=== PATIENT | female | born 1975 | race Caucasian/White ===

== ENCOUNTER 2020-01-28 20:06 | Inpatient (IN) | payer MEDICAID ==
[~2020-01-28] VITALS: Ht 170.2 cm; Wt 106.1 kg
--- NOTE | 2020-01-28 23:15 | NUR ---
RN OPENING NOTES Received patient A/O x4, direct admit from [facility]. Admitted to [facility]-2, via [facility], accompanied by 2 deputy probation officer. Pt noted able to walk from [facility] to bed, steady gait noted. Admission routine done. Admission orders noted and carried out. Initial skin assessment done, pt refused to take of her clothing, pt claimed she has not skin problem noted. Kept on bed clean, dry and comfortable. Call light within easy reach. Will continue to monitor accordingly.
[2020-01-28 23:30] VITALS: BP 149/83
[2020-01-28] MEDS ORDERED: ACETAMINOPHEN 650 MG/SUPP.RECT RC PRN (23:30)
[2020-01-28] MEDS ORDERED: MAGNESIUM HYDROXIDE 30 ML UDC PO PRN (23:30)
[2020-01-28] MEDS ORDERED: Z GUARD REMEDY 2 OZ OINT TP PRN (23:30)
[2020-01-28] MEDS: IV NS 0.9% 1,000 ML IV PRN (23:50)
[2020-01-28] MEDS: LORAZEPAM 0.5 MG TABLET PO PRN (23:50)
[2020-01-28] MEDS: ACETAMINOPHEN 325 MG TABLET PO PRN (23:50)
[2020-01-28] MEDS: ZOLPIDEM TARTRATE 5 MG TABLET PO PRN (23:50)
[2020-01-28] MEDS: ONDANSETRON HCL/PF 4 MG/2 ML VIAL IVP PRN (23:50)
[2020-01-29] MEDS ORDERED: HYDROMORPHONE INJ 0.5 MG/0.5 ML SYRINGE IV ONE
[2020-01-29] MEDS ORDERED: PROCHLORPERAZINE EDISYLATE 10 MG/2 ML VIAL IVP PRN
[2020-01-29] MEDS: ENOXAPARIN SODIUM 40 MG/0.4 ML DISP.SYRIN SQ SCH ×2 (00:28→23:24)
[2020-01-29] MEDS: PANTOPRAZOLE 40 MG VIAL IV SCH ×2 (00:29→23:24)
[2020-01-29] MEDS ORDERED: HYDROMORPHONE 1 MG/1 ML DISP.SYRIN IV ONE (01:00)
[2020-01-29] MEDS: ONDANSETRON HCL/PF 4 MG/2 ML VIAL IVP PRN ×2 (05:58→16:37)
--- NOTE | 2020-01-29 06:34 | NUR ---
RN CLOSING NOTES Patient on bed asleep intermittently. Pt claimed nauseous all the time despite the medications given. Also patient claimed of abdominal pain unrelieved by PRN medications given. Pt on RA, no respiratory distress noted. All nursing needs attended. Call light within easy reach. Endorsed.
--- NOTE | 2020-01-29 07:35 | NUR ---
MS/RN OPENING NOTES RECEIVED PATIENT ON BED ALERT AND ORIENTED X 4. PATIENT COMPLAINED OF PAIN. NO SOB NOTED. WILL CONTINUE TO MONITOR.
[2020-01-29 08:00] VITALS: BP 98/64
[2020-01-29] MEDS ORDERED: ESCI20TA PO (08:07)
[2020-01-29] MEDS ORDERED: ATOR20TA PO (08:07)
[2020-01-29] MEDS ORDERED: CEPH500C2 PO (08:07)
[2020-01-29] MEDS ORDERED: GABA-532 PO (08:07)
[2020-01-29] MEDS ORDERED: LORA-258 PO (08:07)
[2020-01-29] MEDS ORDERED: HYDR-3972 PO (08:07)
[2020-01-29] MEDS ORDERED: ERGO500014 MT (08:07)
[2020-01-29 08:12] LABS: CALCIUM, SERUM 9.1 mg/dL (8.5-10.1); CREATININE 1.2 mg/dL (0.6-1.3); MAGNESIUM 2.1 mg/dL (1.8-2.4); PHOSPHORUS 2.9 mg/dL (2.5-4.9); POTASSIUM 3.9 mmol/L (3.5-5.1)
[2020-01-29 08:15] LABS: BASOPHILS % (AUTO) 0.3 % (0.0-2.0); HEMATOCRIT 40 % (33-45); HEMOGLOBIN 13.2 g/dL (11.5-14.8); LYMPHOCYTES # (AUTO) 1.7 /CMM (0.8-4.8); LYMPHOCYTES % (AUTO) 18.1 % (20.0-44.0); MEAN CORPUSCULAR HGB CONC 33 g/dl (31.0-36.0); MEAN CORPUSCULAR VOLUME 92 fL (82-100); MONOCYTES # (AUTO) 0.6 /CMM (0.1-1.30); MONOCYTES % (AUTO) 6.5 % (2.0-12.0); NEUTROPHILS # (AUTO) 7.1 /CMM (1.8-8.9); NEUTROPHILS % (AUTO) 75.1 % (43.0-81.0); PLATELET COUNT (AUTO) 176 /CMM (150-450); RED BLOOD CELL COUNT(AUTO) 4.37 MIL/uL (4.0-5.2); WHITE BLOOD COUNT (AUTO) 9.5 K/uL (4.3-11.0)
[2020-01-29] MEDS: ACETAMINOPHEN 325 MG TABLET PO PRN ×2 (08:15→14:07)
[2020-01-29] MEDS: LORAZEPAM 0.5 MG TABLET PO PRN ×2 (08:15→16:34)
[2020-01-29] MEDS: ESCITALOPRAM OXALATE (10 MG) 10 MG TABLET PO SCH (08:16)
[2020-01-29] MEDS: ERGOCALCIFEROL (VITAMIN D 2) 50,000 UNIT CAPSULE PO SCH (08:33)
[2020-01-29] MEDS: IV NS 0.9% 1,000 ML IV PRN (10:25)
--- NOTE | 2020-01-29 14:24 | NUR ---
MS/RN NOTES BARRY PURCELL ORDER NORCO 10/325 MG EVERY 4 HOURS AND PRN. NOTED AND CARRIED OUT.
[2020-01-29] MEDS: HYDROCODONE/APAP 10/325MG 1 EA TABLET PO PRN ×2 (15:21→20:36)
--- NOTE | 2020-01-29 15:55 | NUR ---
MS/RN NOTES BARRY PURCELL DNP ORDER CARDIAC DIET NOTED AND CARRIED OUT.
[2020-01-29 16:00] VITALS: BP 95/70
[2020-01-29 18:05] LABS: APPEARANCE,URINE SL CLOUDY (CLEAR); BILIRUBIN,URINE NEGATIVE (NEGATIVE); BLOOD, URINE NEGATIVE Ery/uL (NEGATIVE); COLOR,URINE YELLOW (YELLOW); KETONES,URINE NEGATIVE (NEGATIVE); LEUKOCYTE ESTERASE ,URINE TRACE (NEGATIVE); NITRITE, URINE NEGATIVE (NEGATIVE); PROTEIN,URINE NEGATIVE (NEGATIVE); UGLUCOSE NEGATIVE (NEGATIVE); UROBILINOGEN,URINE 0.2 EU/dL (0.2)
--- NOTE | 2020-01-29 19:00 | NUR ---
326 MS/RN CLOSING NOTES PATIENT IS ON BED. ALERT AND ORIENTED X4. PATIENT IN NO APPARENT RESPIRATORY DISTRESS NOTED. PATIENT NO SIGN AND SYMPTOM OF PAIN NOTED AT THIS TIME. IV ACCESS AT RIGHT WRIST # 24G WITH IV FLUID OF NS 1 L AT 100 ML/HR ON AND INFUSING WELL. SEEN AND EXAMINED BY MD WITH ORDERS MADE AND CARRIED OUT. ALL DUE MEDICATION WAS GIVEN. SAFETY PRECAUTION WAS IN PLACED. BED IN LOWEST POSITION AND LOCKED. SIDE RAILS UP X2. CALL LIGHT WITHIN REACH. PATIENT DID NOT EAT WELL MD IS AWARE. 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 Addendum: 01/29/20 at 1929 by SHEILA BRONSON RN ERROR
[2020-01-29 19:03] LABS: SQUAMOUS EPITHELIAL CELL,UR Few /HPF (None Seen)
[2020-01-29 19:04] LABS: BACTERIA,URINE Rare /HPF (None Seen); RBC,URINE 0-2 /HPF (0-2); WBC,URINE 0-2 /HPF (0-3)
--- NOTE | 2020-01-29 19:29 | NUR ---
MS/RN CLOSING NOTES PATIENT IS ON BED. ALERT AND ORIENTED X4. PATIENT IN NO APPARENT RESPIRATORY DISTRESS NOTED. PATIENT NO SIGN AND SYMPTOM OF PAIN NOTED AT THIS TIME. IV ACCESS AT RIGHT WRIST # 24G WITH IV FLUID OF NS 1 L AT 100 ML/HR ON AND INFUSING WELL. SEEN AND EXAMINED BY MD WITH ORDERS MADE AND CARRIED OUT. ALL DUE MEDICATION WAS GIVEN. SAFETY PRECAUTION WAS IN PLACED. BED IN LOWEST POSITION AND LOCKED. SIDE RAILS UP X2. CALL LIGHT WITHIN REACH. 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
--- NOTE | 2020-01-29 19:30 | NUR ---
MS RN OPENING NOTE RECEIVED PATIENT IN BED. A/OX4. TOLERATING ROOM AIR. RESPIRATIONS ARE EVEN AND UNLABORED. NO S/S SOB NOTED. C/O PAIN, INFORMED HER WILL NEED TO SEE WHEN PAIN MEDICATION IS AVAILABLE AND I WILL NEED TO OBTAIN VITAL SIGNS FROM BUDGET EXAMINER. IN NO APPARENT DISTRESS. IV ACCESS IN RIGHT WRIST #24 RUNNING NS @100ML/HR. BED IS LOW AND LOCKED, HOB ELEVATED IN SEMI FOWLERS, SIDE RAILS UP X2. CALL LIGHT WITHIN REACH. WILL CONTINUE TO MONITOR.
[2020-01-29 20:00] VITALS: BP 112/62
--- NOTE | 2020-01-29 20:43 | NUR ---
MS RN NOTE ADMINISTERED PRN NORCO 10/325 FOR PAIN 7/10 IN ABDOMEN IN MID EPIGASTRIC AREA. WILL CONTINUE TO MONITOR. ALSO ADMINISTERED PRN COMPAZINE 10MG FOR C/O NAUSEA. WILL CONTINUE TO MONITOR.
[2020-01-29] MEDS: ZOLPIDEM TARTRATE 5 MG TABLET PO PRN (21:23)
--- NOTE | 2020-01-29 21:24 | NUR ---
MS R N NOTE ADMINISTERED PRN AMBIEN 5MG PER PATIENT REQUEST FOR SLEEP. WILL CONTINUE TO MONITOR.
[2020-01-29] MEDS ORDERED: ATORVASTATIN 10 MG TABLET PO SCH (22:00)
--- NOTE | 2020-01-29 23:24 | NUR ---
ms rn note patient refused lovenox. educated on risk and benefits, continued to refuse. will continue to monitor.
[2020-01-30] MEDS: LORAZEPAM 0.5 MG TABLET PO PRN ×2 (03:57→13:26)
[2020-01-30] MEDS: IV NS 0.9% 1,000 ML IV PRN (03:58)
--- NOTE | 2020-01-30 03:58 | NUR ---
ms rn note administered prn ativan 0.5mg d/t patient request for feeling anxious. will continue to monitor.
[2020-01-30] MEDS: ONDANSETRON HCL/PF 4 MG/2 ML VIAL IVP PRN ×2 (04:08→07:59)
--- NOTE | 2020-01-30 07:28 | NUR ---
MS RN CLOSING NOTE PATIENT IN BED. A/OX4. TOLERATING ROOM AIR. NO S/S RESP DISTRESS. MANAGED PAIN WITH NORCO/325. MANAGED NAUSEA WITH ANTIEMETIC MEDS. NO DISTRESS NOTED. IV ACCESS MAINTAINED IN RIGHT WRIST #24 RUNNING NS @100ML/HR. BED REMAINS LOW AND LOCKED, HOB ELEVATED IN SEMI FOWLERS, SIDE RAILS UP X2. CALL LIGHT WITHIN REACH. WILL ENDORSE TO NEXT SHIFT
--- NOTE | 2020-01-30 07:52 | NUR ---
MS RN OPENING NOTE PATIENT IN BED. A/OX4. TOLERATING ROOM AIR. NO S/S RESP DISTRESS NOTED. MANAGED PAIN WITH NORCO/325. MANAGED NAUSEA WITH ANTIEMETIC MEDS. NO DISTRESS NOTED. IV ACCESS MAINTAINED IN RIGHT WRIST #24 RUNNING NS @100ML/HR. BED REMAINS LOW AND LOCKED, HOB ELEVATED IN SEMI FOWLERS, SIDE RAILS UP X2. CALL LIGHT WITHIN REACH. WILL ENDORSE TO NEXT SHIFT
[2020-01-30] MEDS: HYDROCODONE/APAP 10/325MG 1 EA TABLET PO PRN ×3 (07:59→18:05)
[2020-01-30 08:00] VITALS: BP_SYST 103; BP_SYST 137; BP_DIAS 66; BP_DIAS 88
[2020-01-30] MEDS: ERGOCALCIFEROL (VITAMIN D 2) 50,000 UNIT CAPSULE PO SCH (08:38)
[2020-01-30] MEDS: ESCITALOPRAM OXALATE (10 MG) 10 MG TABLET PO SCH (08:42)
[2020-01-30 09:32] LABS: CALCIUM, SERUM 8.8 mg/dL (8.5-10.1); CREATININE 1.2 mg/dL (0.6-1.3); MAGNESIUM 2.1 mg/dL (1.8-2.4); PHOSPHORUS 3.4 mg/dL (2.5-4.9); POTASSIUM 3.6 mmol/L (3.5-5.1)
[2020-01-30 09:34] LABS: BASOPHILS % (AUTO) 0.4 % (0.0-2.0); EOSINOPHILS % (AUTO) 1.5 % (0.0-6.0); HEMATOCRIT 41 % (33-45); HEMOGLOBIN 13.2 g/dL (11.5-14.8); LYMPHOCYTES # (AUTO) 2.2 /CMM (0.8-4.8); LYMPHOCYTES % (AUTO) 41.7 % (20.0-44.0); MEAN CORPUSCULAR HGB CONC 32 g/dl (31.0-36.0); MEAN CORPUSCULAR VOLUME 94 fL (82-100); MONOCYTES # (AUTO) 0.3 /CMM (0.1-1.30); MONOCYTES % (AUTO) 6.7 % (2.0-12.0); NEUTROPHILS # (AUTO) 2.6 /CMM (1.8-8.9); NEUTROPHILS % (AUTO) 49.7 % (43.0-81.0); PLATELET COUNT (AUTO) 160 /CMM (150-450); RED BLOOD CELL COUNT(AUTO) 4.35 MIL/uL (4.0-5.2); WHITE BLOOD COUNT (AUTO) 5.2 K/uL (4.3-11.0)
[2020-01-30] MEDS ORDERED: ONDA4TAB5 PO (15:49)
[2020-01-30 16:00] VITALS: BP 130/87
== END 2020-01-30 18:45 | disposition home or self-care (01) | DRG 249 ==
LOC: MED 22:56
PROVIDERS: ADMIT Nurse Practitioner Acute Care; ATTEND Nurse Practitioner Acute Care
DX: R11.15 Cyclical vomiting syndrome unrelated to migraine (principal); E66.9 Obesity, unspecified; Z68.36 Body mass index [BMI] 36.0-36.9, adult; E78.5 Hyperlipidemia, unspecified; F32.9 Major depressive disorder, single episode, unspecified; F41.9 Anxiety disorder, unspecified; D68.59 Other primary thrombophilia; Z85.43 Personal history of malignant neoplasm of ovary; K58.9 Irritable bowel syndrome, unspecified; K76.0 Fatty (change of) liver, not elsewhere classified; G89.29 Other chronic pain; M54.9 Dorsalgia, unspecified; K21.9 Gastro-esophageal reflux disease without esophagitis; N30.90 Cystitis, unspecified without hematuria; F11.10 Opioid abuse, uncomplicated; F12.90 Cannabis use, unspecified, uncomplicated; K22.70 Barrett's esophagus without dysplasia
CPT/HCPCS: 36415; 80048-TC; 80061-TC; 81000-TC; 83735-TC; 84100-TC; 84703-TC; 85025-TC; 87081-TC; C9113; G0378; J0780; J1170; J1650; J2405; J7030